=== PATIENT | male | born 1945 | race Caucasian/White ===

== ENCOUNTER 2023-09-12 04:42 | Inpatient (IN) | payer MEDICARE, OTHER, SELFPAY ==
[2023-09-12] VITALS (22 sets, daily range): BP systolic 104–170; BP diastolic 60–83; BMI 28.4; BMI 28.0
[2023-09-12 00:49] LABS: % Basophils 0.8 % (0-2); % Eosinophils 2.1 % (0-6); % Immature Granulocytes 0.3 % (0-0.5); % Monocytes 10.1 % (1.7-9.3); % Neutrophils 56.7 % (42.2-75.2); Absolute Basophils 0.1 10^3/uL (0-0.2); Absolute Eosinophils 0.2 10^3/uL (0-0.7); Absolute Lymphocytes 3.2 10^3/uL (1.2-3.4); Absolute Monocytes 1.1 10^3/uL (0.1-0.6); Hematocrit 42.3 % (39.0-52.0); Hemoglobin 14.8 g/dL (13.0-18.0); Mean Corpuscular Hgb 29.4 pg (27.0-31.0); Mean Corpuscular Volume 84.1 fL (80.0-94.0); Mean Platelet Volume 9.8 fL (7.4-10.4); Nucleated Red Blood Cells % 0 % (-); Platelet Count 188 10^3/uL (130-400); Red Blood Cell Count 5.03 10^6/uL (4.70-6.10); Red Cell Dist. Width 13.8 % (11.5-14.5); White Blood Cell Count 10.5 10^3/uL (4.8-10.8)
[2023-09-12 00:49] LABS: Glucose - Point of Care 147 mg/dl (70-99)
[2023-09-12 01:03] LABS: ALT (SGPT) 25 U/L (0-50); AST (SGOT) 35 U/L (17-59); Albumin 4.8 g/dl (3.5-5.0); Alkaline Phosphatase 135 U/L (38-126); Blood Urea Nitrogen 28 mg/dl (9-20); Calcium 9.9 mg/dl (8.4-10.2); Carbon Dioxide 20 mmol/L (22-30); Chloride 101 mmol/L (98-107); Estimated Creatinine Clearance 59 ml/min; Glucose 161 mg/dl (70-99); Potassium 3.6 mmol/L (3.5-5.1); Sodium 138 mmol/L (135-145); Total Protein 7.5 g/dl (6.3-8.2); eGFR > 60.00
--- NOTE | 2023-09-12 01:04 | ED.GENMED ---
History of Present Illness
<KRYSTINA Cuadra - Last Filed: 09/12/23 01:16>
General
Chief Complaint: Chest Pain
Source: patient
Exam Limitations: none
Time Seen by Provider: 09/12/23 01:01
Nursing documentation reviewed up to this point in time: agreed with
Travel History
Have you had any contact with someone who has COVID-19?: No
Do you have any symptoms of coronavirus? Fever > 100 degrees, chills, cough, shortness of breath, sore throat, loss of taste or smell, muscle aches, or headache?: No
History of Present Illness
History of Present Illness:
patient is a 78 y/o male with PMH of a CABG 1 year ago presenting with CP x 2 hrs. Patient states he was walking up the stairs when the pain started. Patient states the pain is in the center of his chest over the scar and does not radiate. Patient
states he took 4 aspirin at home which did not help and was given nitro en route which have not helped. Patient denies any cardiac issues besides one bout of afib since the CABG. Patient admits to associated SOB and lightheadedness since onset of
chest pain. Patient denies MORA, fever, chills, N/V/D/C, edema. Patient admits to exerting himself more than usual today. Patient denies tobacco or alcohol in the last 48 hrs. Patient denies any recent illness or recent medication changes.
Review of Systems
<KRYSTINA Cuadra - Last Filed: 09/12/23 01:16>
Review of Systems
Constitutional: Reports no symptoms
EENT: Reports no symptoms
Respiratory: Reports trouble breathing
Cardiac: Reports chest pain and diaphoresis
ABD/GI: Reports no symptoms
: Reports no symptoms
Musculoskeletal: Reports no symptoms
Skin: Reports no symptoms
Neurological: Reports dizzy
Endocrine: Reports no symptoms
Hematologic/Lymphatic: Reports no symptoms
Psychiatric: Reports no symptoms
Phy Exam
<KRYSTINA Cuadra - Last Filed: 09/12/23 01:16>
General Physical Exam
General Presentation: well appearing and no apparent distress
General Skin: warm and dry
General Habitus: normal
General Mental: alert
General Hydration: appears well hydrated
ENT Exam
ENT Exam: EOMI, pharynx normal, neck supple and normocephalic
Eye Exam
Eye Exam: PERRL, cornea clear and conjunctiva normal
Cardiovascular Exam
Cardiovascular Exam: regular rate/rhythm, no edema, no murmur and normal peripheral pulses
Pulmonary Exam
Pulmonary Exam: lungs clear, no respiratory distress, no rales, no crackles, no rhonchi, no stridor, no wheezing and no cough
Gastrointestinal Exam
Gastrointestinal Exam: normal bowel sounds, non tender, soft, no organomegaly, no pulsatile mass and non distended
Neurological Exam
Neurological Exam: alert, oriented x3, no motor deficits and speech normal
Musculoskeletal Exam
Musculoskeletal Exam: full ROM and no edema
Skin Exam
Skin Exam: normal color, warm/dry, no rash and no petechia
Psychiatric Exam
Psychiatric Exam: normal mood/affect
<Adeline Badillo DO - Last Filed: 09/12/23 06:24>
Heart Score for Chest Pain Patients
STEMI patient?: No
History: Moderately Suspicious
ECG: Nonspecific Repolarization
Age: >/= 65 years
Risk Factors: >/= 3 Risk Factors or History of CAD
Troponin: >/= 3 x Normal Limit
Heart Score for Chest Pain Patients: 8
Heart Score Risk: 72.7 % MACE over next 6 weeks
Course
<KRYSTINA Cuadra - Last Filed: 09/12/23 01:16>
Orders/Labs/Results
Orders:
Orders
09/12/23 00:32
EKG [Electrocardiogram (*1)] Urgent
Reason for Study: Chest Pain
EKG- Treatment ONCE
09/12/23 00:41
Complete Blood Count/With Diff Urgent
Comprehensive Metabolic Panel Urgent
Troponin I Urgent
09/12/23 01:34
US Abdomen Complete/Upper Urgent
Comment:
Reason For Exam: ACUTE EPIGASTRIC PAIN, ELEVATED TBILI/ALK PHOS
09/12/23 02:56
Troponin I Urgent
09/12/23 03:37
Heparin 4,000 units IV NOW STA
09/12/23 03:[address] Non Medication Order As Directed
Physician Order: PTT 6 hours after initial start of Heparin infusion
Above order entered?: Yes
09/12/23 03:45
PTT Urgent
Comment: Obtain baseline before beginning heparin infusion if not already collected
Heparin 51157 Units/250 ml 25,000 units in 250 ml IV PER PROTOCOL
Weight to be used for heparin protocol in kilograms (kg):: 95.3008880
Protocol:: Cardiac Tx/Acute Coronary
PTT Goal Range to be used:: PTT 73 to 111 seconds
Order type:: Initial
INITIAL Infusion Dose (UNITS/KG/hr) & then follow protocol:: 12 units/kg/hr
Infusion Dose in UNITS/hr & then follow protocol (UNITS/hr):: 1,000
INFUSION RATE in mL/hr & then follow protocol (mL/hr):: 10
PTT less than or equal to 64 seconds:: Increase rate by 200 units/hr (+ 2 mL/hr)
PTT 64.1 to 72.9 seconds:: Increase rate by 100 units/hr (+ 1 mL/hr)
PTT 73 to 111 seconds:: Target Range. No change in rate.
PTT 111.1 to 130.9 seconds:: Decrease rate by 100 units/hr (- 1 mL/hr)
PTT 131 to 199.9 seconds:: HOLD for 1 hr. Then decrease rate by 200 units/hr (- 2 mL/hr)
PTT greater than or equal to 200 seconds:: HOLD for 2 hrs & Notify Provider. Then decrease by 200 units/hr (-
2 mL/hr)
Lab follow-up:: Each change, PTT q6h until 2 consecutive are therapeutic. Then PTT
daily.
09/12/23 04:25
Admit/Transfer Patient As Directed
Co-Sign Provider:
Level of Care: Inpatient admission
Assign to:: IVU
Physician / Group: Drake
Diagnosis: ACS / NSTEMI
Reason for Hospitalization: ACS / NSTEMI
Expected length of stay greater than two midnights?: Yes
ELOS- Estimated Length of Stay in days: 3
I certify the patient meets the requirements for IP care: Yes
09/12/23 04:27
Code Status As Directed
Resuscitation Status: Full Code
09/12/23 04:49
Lactic Acid Urgent
09/12/23 10:25
PTT Urgent
Comment: Heparin gtt
Abnormal Lab Results
09/12/23 09/12/23 09/12/23
00:41 00:48 02:56
Absolute Monos (auto) 1.1 H 10^3/uL
(0.1-0.6)
Monocytes % 10.1 H %
(1.7-9.3)
Carbon Dioxide 20 L mmol/L
(22-30)
BUN 28 H mg/dl
(9-20)
Glucose 161 H mg/dl
(70-99)
Total Bilirubin 2.0 H mg/dl
(0.2-1.3)
Alkaline Phosphatase 135 H U/L
(38-126)
Troponin I 0.443 H* D ng/ml
POC Glucose 147 H mg/dl
(70-99)
09/12/23 00:41
09/12/23 00:41
Vital Signs
Initial and Last Documented VS:
Initial Vital Signs
Temp Pulse Resp BP Pulse Ox
97.7 F 68 18 170/76 100
09/12/23 00:36 09/12/23 00:36 09/12/23 00:36 09/12/23 00:36 09/12/23 00:36
Last Documented Vital Signs
Temp Pulse Resp BP Pulse Ox
97.7 F 77 17 129/71 98
09/12/23 00:36 09/12/23 05:30 09/12/23 05:30 09/12/23 05:00 09/12/23 05:30
<Adeline Badillo, DO - Last Filed: 09/12/23 06:24>
Orders/Labs/Results
Orders:
Orders
09/12/23 00:32
EKG [Electrocardiogram (*1)] Urgent
Reason for Study: Chest Pain
EKG- Treatment ONCE
09/12/23 00:41
Complete Blood Count/With Diff Urgent
Comprehensive Metabolic Panel Urgent
Troponin I Urgent
09/12/23 01:34
US Abdomen Complete/Upper Urgent
Comment:
Reason For Exam: ACUTE EPIGASTRIC PAIN, ELEVATED TBILI/ALK PHOS
09/12/23 02:56
Troponin I Urgent
09/12/23 03:37
Heparin 4,000 units IV NOW STA
09/12/23 03:[address] Non Medication Order As Directed
Physician Order: PTT 6 hours after initial start of Heparin infusion
Above order entered?: Yes
09/12/23 03:45
PTT Urgent
Comment: Obtain baseline before beginning heparin infusion if not already collected
Heparin [id number] Units/250 ml 25,000 units in 250 ml IV PER PROTOCOL
Weight to be used for heparin protocol in kilograms (kg):: 95.4575758
Protocol:: Cardiac Tx/Acute Coronary
PTT Goal Range to be used:: PTT 73 to 111 seconds
Order type:: Initial
INITIAL Infusion Dose (UNITS/KG/hr) & then follow protocol:: 12 units/kg/hr
Infusion Dose in UNITS/hr & then follow protocol (UNITS/hr):: 1,000
INFUSION RATE in mL/hr & then follow protocol (mL/hr):: 10
PTT less than or equal to 64 seconds:: Increase rate by 200 units/hr (+ 2 mL/hr)
PTT 64.1 to 72.9 seconds:: Increase rate by 100 units/hr (+ 1 mL/hr)
PTT 73 to 111 seconds:: Target Range. No change in rate.
PTT 111.1 to 130.9 seconds:: Decrease rate by 100 units/hr (- 1 mL/hr)
PTT 131 to 199.9 seconds:: HOLD for 1 hr. Then decrease rate by 200 units/hr (- 2 mL/hr)
PTT greater than or equal to 200 seconds:: HOLD for 2 hrs & Notify Provider. Then decrease by 200 units/hr (-
2 mL/hr)
Lab follow-up:: Each change, PTT q6h until 2 consecutive are therapeutic. Then PTT
daily.
09/12/23 04:25
Admit/Transfer Patient As Directed
Co-Sign Provider:
Level of Care: Inpatient admission
Assign to:: IVU
Physician / Group: Drake
Diagnosis: ACS / NSTEMI
Reason for Hospitalization: ACS / NSTEMI
Expected length of stay greater than two midnights?: Yes
ELOS- Estimated Length of Stay in days: 3
I certify the patient meets the requirements for IP care: Yes
09/12/23 04:27
Code Status As Directed
Resuscitation Status: Full Code
09/12/23 04:49
Lactic Acid Urgent
09/12/23 10:25
PTT Urgent
Comment: Heparin gtt
Abnormal Lab Results
09/12/23 09/12/23 09/12/23
00:41 00:48 02:56
Absolute Monos (auto) 1.1 H 10^3/uL
(0.1-0.6)
Monocytes % 10.1 H %
(1.7-9.3)
Carbon Dioxide 20 L mmol/L
(22-30)
BUN 28 H mg/dl
(9-20)
Glucose 161 H mg/dl
(70-99)
Total Bilirubin 2.0 H mg/dl
(0.2-1.3)
Alkaline Phosphatase 135 H U/L
(38-126)
Troponin I 0.443 H* D ng/ml
POC Glucose 147 H mg/dl
(70-99)
09/12/23 00:41
09/12/23 00:41
Vital Signs
Initial and Last Documented VS:
Initial Vital Signs
Temp Pulse Resp BP Pulse Ox
97.7 F 68 18 170/76 100
09/12/23 00:36 09/12/23 00:36 09/12/23 00:36 09/12/23 00:36 09/12/23 00:36
Last Documented Vital Signs
Temp Pulse Resp BP Pulse Ox
97.7 F 77 17 129/71 98
09/12/23 00:36 09/12/23 05:30 09/12/23 05:30 09/12/23 05:00 09/12/23 05:30
<KRYSTINA Cuadra - Last Filed: 09/12/23 01:16>
MDM/Problems Addressed
Differential Diagnosis Includes:
HF
SD
angina
MDM/Problems Addressed:
chest pain
<KRYSTINA Cuadra - Last Filed: 09/12/23 01:16>
*Critical Care Note
Total Time (30-74mins, 75-104mins- exclusive of procedures): Not Applicable
<Adeline Badillo DO - Last Filed: 09/12/23 06:24>
*Radiology
Radiology exam reviewed: radiology read reviewed
*Pulse Oximetry
Patient hypoxic: no
*EKG
Interpreted by ED Provider?: Yes
Comparison EKG: no comparison EKG present
Rate: normal
Rhythm: ventricular paced (Atrial sensed, ventricular paced rhythm at a rate of 67)
*Harness Cutter Interpretation
Rate: normal
Interpretation: normal
Rhythm: ventricular paced (Atrial sensed, ventricular paced.)
ED Attending Note
<KRYSTINA Cuadra - Last Filed: 09/12/23 01:16>
-
Portions of this chart may have been created with voice recognition software.� Occasional wrong word or��sound alike� substitutions may have occurred due to the inherent limitations of voice recognition software.
<Adeline Badillo DO - Last Filed: 09/12/23 06:24>
ED Attending Note
Patient seen and examined by attending physician: Yes
I performed the substantive portion of visit, reviewed & personally made and approve the management plan that is documented in note by myself or KANU.: Yes
I performed a history and physical exam of patient and discussed management with resident, I reviewed resident's note and agree with documented findings and plan of care.: Yes
ED Attending Note:
This is an 78-year-old gentleman who resides at home with his . He has history of CAD, cardiomyopathy status post CABG 1 and half years ago, AICD in place, history of PAF, hyperlipidemia, [id number] diabetes. He follows with
cardiology at [facility].
He complains of epigastric, lower substernal chest discomfort that initially began around 10 PM, initially mild in nature but then abruptly worsened while ascending his steps to go to bed, accompanied with shortness of breath, lightheadedness,
diaphoresis. Patient states he never experienced chest discomfort such as this and took 4 chewable aspirin at home and called 911. Prehospital EKG shows 100% ventricular paced rhythm otherwise unremarkable. Due to chest pain EMS bypassed [place] [facility] and brought the patient to [facility]. No previous visits to [facility]. He was given 1 sublingual nitroglycerin spray prehospital with questionable improvement in pain.
Since arrival to the ED however pain has slowly subsided and he is now pain-free.
He does have prior history of cholecystectomy. Remote history of gastritis/GERD that was most apparent while he was working, GERD/gastritis resolved after he retired.
Prior to tonight he has been feeling well, no change in weight, no leg pain or swelling, no recent URI.
No recent change in medications.
He had a pork chop for dinner tonight.
GENERAL: Alert , in no apparent distress. 78-year-old gentleman appears his stated age, bright and alert, pleasant, appears in no acute distress.
EYE: anicteric
NECK: Supple, nontender, no meningismus, no significant adenopathy. No JVD.
ENT: oral mucosa is moist. No rhinorrhea.
CARDIAC: Regular rate and rhythm. no murmur.
LUNGS: Clear breath sounds bilaterally, no acute respiratory distress, no wheezes/rales/rhonchi
ABDOMEN: Rotund, soft, nondistended, mild epigastric tenderness to palpation, no r/g, normoactive BS.
NEUROLOGICAL: Alert and oriented x3, no focal neuro deficits.
SKIN: Warm and dry, normal color, skin intact. No rash.
MUSCULOSKELETAL: No C/C/E. peripheral pulses are full and equal b/l. No palpable tenderness.
PSYCH: Normal and appropriate interaction.
Concern for ACS, gastritis/GERD, pancreatitis, choledocholithiasis, arrhythmia.
EKG again shows atrial sensed, ventricular paced rhythm, 1 PVC. No old EKGs to compare.
I was able to access prior records. Patient had recent fasting labs September 05, 2023 showing T. bili of 1.7, similar minimally elevated bilirubin in the past, normal alkaline phosphatase, normal LFTs. Hemoglobin A1c at 6.3. LDL of 54. Normal CBC.
Current labs concerning for mild upswing in T. bili at 2.0 and mildly elevated alkaline phosphatase which is new compared to previous.
Troponin is normal.
Will plan to repeat troponin and due to uptrend in bilirubin and alkaline phosphatase concern for biliary colic/choledocholithiasis/will check abdominal ultrasound.
AICD interrogated, there has been no arrhythmia events.
09/12/2023 03:45 AM
Ultrasound is unremarkable.
Repeat troponin has trended up to non-STEMI level, 0.443.
Patient remains pain-free and comfortable.
Case discussed with cardiology, Dr. May who request patient be admitted to hospitalist service with consult to cardiology.
IV heparin initiated. Will hold Eliquis and will continue to trend troponin.
Discharge Plan
Departure
Patient Disposition: Admit
Date of Disposition: 09/12/23
Time of Disposition: 03:52
Admit to: IVU
Admit to doctor: Drake
Presentation/result/management discussed w/ accepting MD/DO: Hospitalist
Condition: Serious
Discharge Problem:
Non-ST elevated myocardial infarction (non-STEMI)
Interventions
Interventions:
*Risk Screen - Suicide Last Done: 09/12/23 00:34
*General Assessment Last Done: 09/12/23 00:34
*Neglect/Abuse Screening Last Done: 09/12/23 00:34
ED- Fall Risk Assessment Last Done: 09/12/23 00:36
*ED COVID-19 Vaccine History Last Done: 09/12/23 00:34
ED- Cardiac Assessment Last Done: 09/12/23 00:38
[2023-09-12 01:14] LABS: Troponin I 0.024 ng/ml
[2023-09-12 03:36] LABS: Troponin I 0.443 ng/ml
[2023-09-12] MEDS: HEPARIN 4000 UNITS IV (04:23)
[2023-09-12] MEDS: HEPARIN 25000 UNITS/250 ML IV (04:23)
--- NOTE | 2023-09-12 04:30 | HPS.HSE ---
Family Physician
-
Family Physician: Alexi Reid
Chief Complaint
-
Chest Pain
History of Present Illness
Patient is an 78y M with PMH significant for ASCVD, cardiomyopathy and DM-II who presents to ED complaining of chest pain. Patient states that he was feeling well until about 10 PM this evening when he developed a mild, substernal chest
discomfort. He ambulated up the stairs to bed and his discomfort increased. He states that his pain reached a peak of 5/10 in severity. He had accompanying symptoms of diaphoresis and lightheadedness. He denies any SOB, N/V or palpitations.
Patient denies any prior history of similar symptoms. Patient took 4 ASA tabs at home.
EMS was called and patient was given NTG en route to the ED.
After arrival to the ED, his pain has subsided. He notes that his current pain level is 0/10.
Patient has prior h/o ASCVD. He is s/p CABG x 3 at [place] about 1 1/2 years ago.
He is followed by Dr. Moreland at [facility].
Medical History
Past Medical History
Past Medical History: Reports Other
Additional Past Medical History:
ASCVD
Hypertension
Ischemic Cardiomyopathy (Reported LVEF = 35% per patient)
Chronic HFrEF
DM-II
GERD
Arrhythmia
Past Surgical History: Reports Other
Additional Past Surgical History:
CABG X 3
AICD Placement
Cholecystectomy
Right Thyroidectomy
Social History
Tobacco: Former Smoker (10 pack years total use and quit smoking > 50 years ago.)
Alcohol: Occasional
Drug: None
Personal:
Living: With Family
Family History
Family History: Not pertinent
Allergies / Home Medications
Allergies reflects when Allergies were last updated in [facility].
Home Medications with original date entered in [facility]
Allergy/Medication List:
Allergies
Allergy/AdvReac Type Severity Reaction Status Date / Time
shellfish derived Allergy Anaphylaxis Verified 09/12/23 00:37
Home Medications
amiodarone 200 mg tablet 200 mg PO DAILY 09/12/23
apixaban 5 mg tablet (Eliquis) 5 mg PO BID 09/12/23
aspirin 81 mg capsule 81 mg PO DAILY 09/12/23
atorvastatin 40 mg tablet 40 mg PO HS 09/12/23
carvedilol 3.125 mg tablet 3.125 mg PO BID 09/12/23
empagliflozin 10 mg tablet (Jardiance) 10 mg PO DAILY 09/12/23
furosemide 40 mg tablet 40 mg PO DAILY 09/12/23
magnesium oxide 400 mg PO DAILY 09/12/23
omeprazole 20 mg tablet,delayed release 20 mg PO DAILY 09/12/23
potassium chloride 10 mEq capsule,extended release 10 meq PO DAILY 09/12/23
sacubitril 24 mg-valsartan 26 mg tablet (Entresto) 1 tab PO BID 09/12/23
vitamin E 200 unit tablet 200 unit PO DAILY 09/12/23
Review of Systems
-
History Source: Patient
A 12 point ROS was completed and negative except as noted: Yes
Constitutional: Reports Fatigue; Denies Fever or Chills
EENT: Denies Sore Throat
Respiratory: Denies Cough or Trouble Breathing
Cardiac: Reports Chest Pain and Diaphoresis; Denies Palpitations or Syncope
Abdomen/GI: Denies Abdominal Pain, Nausea, Vomiting or Diarrhea
: Denies Dysuria or Frequency
Neurological: Reports Dizzy; Denies Headache
Psych: Denies Depression or Anxiety
Physical Exam
Vital Signs
Vital Signs
Temp Pulse Resp BP Pulse Ox
97.7 F 76 19 126/60 100
09/12/23 00:36 09/12/23 04:15 09/12/23 04:15 09/12/23 04:00 09/12/23 04:15
Physical Exam
General: Other (78y M in no acute distress.)
HEENT: Moist mucous membranes and PERRLA
Respiratory: Clear; No Wheezes, Rales or Rhonchi
Cardiac: S1/S2, Regular Rhythm and Murmur (III/ HUNG)
GI: Soft, Non Tender, Non Distended and Normal Bowel Sounds
Musculoskeletal: No Clubbing, No Cyanosis and No Edema
Neuro: AO x 3
Laboratory Results
-
09/12/23 00:41
09/12/23 00:41
Laboratory Results
APTT 34.0 Sec (23.4-35.0) 09/12/23 03:45
Total Bilirubin 2.0 mg/dl (0.2-1.3) H 09/12/23 00:41
AST 35 U/L (17-59) 09/12/23 00:41
ALT 25 U/L (0-50) 09/12/23 00:41
Alkaline Phosphatase 135 U/L (38-126) H 09/12/23 00:41
Troponin I 0.443 ng/ml H* D 09/12/23 02:56
Impression/Plan
-
A/P: Patient is an 78y M with PMH significant for ASCVD, CHF and DM-II who presents to ED complaining of chest pain this evening.
ACS / NSTEMI
ASCVD
- Admit for further evaluation and treatment.
- Patient with substernal chest pain and increasing troponin with multiple risk factors / documented coronary disease.
- EKG is V-paced with occasional PVC.
- IV heparin infusion for now.
- Currently pain free - begin NTG should pain recur.
- Continue beta-blockade, statin, ASA, etc.
- Trend troponin to peak.
- Cardiology consultation in the AM for possible ischemic evaluation.
- Follow for any new / recurrent symptoms.
Anion Gap Metabolic Acidosis
- Suspect that anion gap elevation is on the basis of ischemia.
- Lactate level added and is pending.
- Treat suspected coronary ischemia as noted above.
- Follow for improvement in anion gap acidosis.
- Doubt DKA with only marginally elevated glucose.
- Consider further evaluation if no improvement.
Chronic HFrEF
- Patient reports prior LVEF of about 35%.
- No evidence on exam of volume overload / decompensation at present.
- Continue current Lasix dosing.
- Will hold Entresto acutely.
- Follow I/Os, daily weights, etc.
Arrhythmia
- Not clear what arrhythmia - suspect PA-Fib based on med regimen with Amio and Eliquis.
- Monitor on telemetry.
- Currently A-sensing, V-paced rhythm with occasional PVCs.
- Device interrogated in the ED and no events noted since June 2023.
- Hold Eliquis acutely while on IV heparin.
DM-II
- Stable. Patient states that most recent A1C was < 7% - will update.
- Hold Jardiance acutely.
- Follow glucose and cover with SSI as needed.
DVT Prophylaxis: On IV heparin
Code Status: Full
[2023-09-12 05:18] LABS: Lactic Acid 1.2 mmol/L (0.7-2.0)
--- NOTE | 2023-09-12 07:30 | CON.CAR ---
Addendum entered and electronically signed by Henri Almaraz DO 09/12/23 10:22:
I saw and examined the patient.
The Electrician Front's note was reviewed and I agree with the note.
Comment:
Plan:
Chest pain that appears consistent with NSTEMI.
Continue to trend troponins, trop 23 and trending.
Cont IV heparin
Add IV nitro.
Check echo
Get records from [facility] regarding CABG
Hx of BiVICD, EF 35 %, interrogation shows no recent events.
Cont Coreg 3.125 mg BID, Entresto 24/26 mg BID and Jardiance 10 mg daily for CM
Cont Lasix 40 mg PO daily, no evidence of acute HF.
Remains sinus, with hx of paroxysmal Afib s/p CABG. Cont usual dose of amiodarone 200 mg daily.
Discussed with interventional cardiology.
Original Note:
Consultation
Consultation Request
Date/Time Consultation Requested: 09/12/23 at 0630
Date/Time Consultation Performed: 09/12/23 at 0730
Requesting Provider: Dr. Juan
Performing Provider: Dr. Jiang
Reason for Consultation: Chest pain, NSTEMI
Medical History
-
History of Present Illness:
Patient came to [facility] last night with chest pain and cardiology is now consulted for NSTEMI. Patient lives in [place] and follows with [facility] cardiology. He says that he was found to have multivessel CAD during a pre-op cardiac clearance for cataract
surgery 18 months ago. Patient reports CABG with SVG and left radial grafts at [facility]. Patient reports post-op Afib and he is now chronically on amiodarone and Eliquis, last dose of Eliquis was last night. Patient also has a Medtronic ICD, but he says
he does not know what his EF is and if it improved after surgery. Chest pain started during the day yesterday and was on and off but then became sustained around 2200 last night. he also felt diaphoretic and called 911. Paramedics gave him Nitro SL
x1 without improvement in pain. He feels that overall pain lasted about an hour and then improved on it's own and has not recurred. He says that he has an ongoing discomfort in his chest now, but no pain like last night.
PMH:
CAD s/p CABG at [facility] 01/2022
ICM, EF 30-35% by echo 12/27/22
s/p Medtronic TECHNICAL CABLE JOINTER-D 04/2022
Chronic HFrEF
Paroxysmal Afib
Chronic Eliquis OAC, last dose 09/11/23 PM
Chronic amiodarone OAC
DM 2
Past Medical History
Past Medical History: Other (in HPI)
Past Surgical History: Cardiac (ABG at [facility] 2021)
Social History
Tobacco: Former Smoker (smoked 1 ppd age [age])
Alcohol: Occasional (2 beers once a month)
Drug: None
Family History
Family History: CAD
Allergies / Home Medications
Allergy/AdvReac Type Severity Reaction Status Date / Time
shellfish derived Allergy Anaphylaxis Verified 09/12/23 00:37
Medication Instructions Recorded Confirmed Type
amiodarone 200 mg tablet 200 mg PO DAILY 09/12/23 09/12/23 History
apixaban 5 mg tablet (Eliquis) 5 mg PO BID 09/12/23 09/12/23 History
aspirin 81 mg capsule 81 mg PO DAILY 09/12/23 09/12/23 History
atorvastatin 40 mg tablet 40 mg PO HS 09/12/23 09/12/23 History
carvedilol 3.125 mg tablet 3.125 mg PO BID 09/12/23 09/12/23 History
empagliflozin 10 mg tablet 10 mg PO DAILY 09/12/23 09/12/23 History
(Jardiance)
furosemide 40 mg tablet 40 mg PO DAILY 09/12/23 09/12/23 History
magnesium oxide 400 mg PO DAILY 09/12/23 09/12/23 History
omeprazole 20 mg tablet,delayed 20 mg PO DAILY 09/12/23 09/12/23 History
release
potassium chloride 10 mEq 10 meq PO DAILY 09/12/23 09/12/23 History
capsule,extended release
sacubitril 24 mg-valsartan 26 mg 1 tab PO BID 09/12/23 09/12/23 History
tablet (Entresto)
vitamin E 200 unit tablet 200 unit PO DAILY 09/12/23 09/12/23 History
Review of Systems
-
History Source: Patient
All other systems: Negative unless noted
Physical Exam
Vital Signs
Temp Pulse Resp BP Pulse Ox
97.5 F 71 18 145/67 98
09/12/23 06:36 09/12/23 06:35 09/12/23 06:36 09/12/23 06:35 09/12/23 06:36
GEN: NAD. AAOx3
HEENT: EOMI, MMM
LUNGS: CTA B/L, no wheezes or rales
CV: Reg, S1/S2, 1/6 syst LSB
ABD: soft, BS+, NT, ND
EXT: No clubbing, cyanosis, lesions or edema B/L
NEURO: Gross non-focal
SKIN: Warm, dry and pink. No rash
Lab Results
09/12/23 00:41
09/12/23 00:41
Troponin I 0.443 ng/ml H* D 09/12/23 02:56
Impression / Plan
-
PCP: Dr. Alexi Reid
Cardiology: Dr. Luciano Moreland at [facility] [phone]
Impression:
Chest pain
NSTEMI
CAD s/p CABG at [facility] 01/2022
ICM, EF 30-35% by echo 12/27/22
s/p Medtronic TECHNICAL CABLE JOINTER-D 04/2022
Chronic HFrEF
Paroxysmal Afib
Chronic Eliquis OAC, last dose 09/11/23 PM
Chronic amiodarone OAC
DM 2
Echo 12/27/22: EF 30-35%, mild to mod MR, mod with peak/mean 29/17 mmHg and SARAH 1.2 cm sq
Plan:
-Patient came to [facility] last night with chest pain and cardiology is now consulted for NSTEMI. Patient lives in [place] and follows with [facility] cardiology. He says that he was found to have multivessel CAD during a pre-op cardiac clearance for cataract
surgery 18 months ago. Patient reports CABG with SVG and left radial grafts at [facility]. Patient reports post-op Afib and he is now chronically on amiodarone and Eliquis, last dose of Eliquis was last night. Patient also has a Medtronic ICD, but he says
he does not know what his EF is and if it improved after surgery. Chest pain started during the day yesterday and was on and off but then became sustained around 2200 last night. he also felt diaphoretic and called 911. Paramedics gave him Nitro SL
x1 without improvement in pain. He feels that overall pain lasted about an hour and then improved on it's own and has not recurred. He says that he has an ongoing discomfort in his chest now, but no pain like last night.
-Called to request records from primary senior lead software engineer. Records received and reviewed within this note.
-Pain free at present on Heparin gtt.
-Troponin was 0.024 then 0.443 and now 23.0. ECG reviewed by me is paced.
-Talked with patient about cardiac cath based on chest pain. elevated Troponin to 23 and h/o CAD s/p CABG and he is agreeable.
-Last dose of Eliquis was last night.
-Records indicate CABG was in 01/2022, but no CABG report, will call back for additional records.
-Patient with known ICM and EF that did not improve with CABG so patient had Medtronic TECHNICAL CABLE JOINTER-D placed 04/2022. Device interrogated by me today and shows no arrhythmia events, he has 8 years battery longevity.
-CM regimen includes Coreg 3.125 mg BID, Entresto 24/26 mg BID and Jardiance 10 mg daily.
-Patient also takes Lasix 40 mg PO daily chronically and this has been continued. No evidence of acute HF.
-Patient with paroxysmal Afib s/p CABG and he is in SR on ECG and device check. Cont usual dose of amiodarone 200 mg daily.
--- NOTE | 2023-09-12 08:00 | PTCARENOTE ---
Assumed care of patient. Walking rounds completed with previous RN. Pt assessed while he was lying in bed. Pt alert and oriented x4. DAVIS with equal strength throughout. Pt denies chest pain, shortness of breath, and nausea. 100% v-paced on tele with
rates in the 70s. BP stable 150/83. Bilateral radial and DP pulses palpable. No edema noted. +Murmur. POX 99% on RA. Lungs clear throughout. No cough noted. Abdomen soft, round, nontender. +BS. Pt reports last BM 09/10. Pt due to void for this RN. No
skin issues noted. Left AC 20g PIV intact infusing heparin gtt @1000units/hour. Admission questions completed and home medications reviewed. See MAR for medication administration. See worklist for complete nursing assessment. Plan of care reviewed
and patient in agreement.
[2023-09-12] MEDS: COREG 3.125 MG PO ×2 (08:02→19:30)
[2023-09-12 08:03] LABS: Glucose - Point of Care 114 mg/dl (70-99)
[2023-09-12] MEDS: PROTONIX 40 MG PO (08:03)
[2023-09-12] MEDS: LASIX 40 MG PO (08:03)
[2023-09-12] MEDS: KCL 10 MEQ PO (08:03)
[2023-09-12] MEDS: LOW STRENGTH ASPIRIN 81 MG PO (08:03)
[2023-09-12] MEDS: PACERONE 200 MG PO (08:03)
[2023-09-12 10:56] LABS: ACT-LR - POC 332 Seconds (116-155)
--- NOTE | 2023-09-12 11:31 | ITS.CL.CATH ---
Addendum entered and electronically signed by Rohit Fuller MD 09/12/23 17:31:
Correction: The left ventricular pressure is 162/14. There is moderate aortic stenosis with a mean gradient of 23 mmHg across the aortic valve
Original Note:
Concrete Engineering Technician - Catheterization
Cardiac Catheterization
Procedure Report:
CARDIAC CATHETERIZATION REPORT
Date of Procedure: 09/12/2023
Referring: Kurt Washington DO
Indication: Non-STEMI
HEMODYNAMIC DATA
AO: 150/72
LV: 150/14
LEFT VENTRICULOGRAPHY: Inferior akinesis with moderate to severe anterolateral hypokinesis with EF 37%
CORONARY ANGIOGRAPHY
Dominance: Right
Left Main: Normal
LAD: 40% proximal stenosis with occlusion of the distal LAD approximately 35 mm past the takeoff of D2. The LAD distal to the occlusion fills via a patent SAHARA graft. The very large first diagonal branch has 30% ostial stenosis and 95% proximal to
mid stenosis-this has the angiographic appearance of a plaque rupture lesion. The moderate-sized second diagonal branch has 70% ostial stenosis
Circumflex: The circumflex artery has a very long area of disease to 80% severity distal to the origin of a tiny OM1 and a small OM 2. OM 2 is occluded in its distal segment. The circumflex terminates with a bifurcating large OM 3 which originates
past the diseased segment.
RCA: The RCA is occluded at the origin. There is faint qbth-mw-cafum collateral filling of a small segment of the distal RCA territory
Bypass grafts:
1. The left internal mammary graft to the distal LAD is widely patent with excellent distal runoff and no significant LAD disease distal to the touchdown site
2. A vein graft to the RCA is occluded at its origin
3. The patient believed he had three-vessel bypass-there are no other visible bypass grafts and both the first diagonal branch and large OM 3 would have been appropriate targets and clearly have no patent graft to their distributions
Angioplasty: At the conclusion the diagnostic study, the patient underwent multivessel intervention to treat the 95% proximal to mid lesion in the large first diagonal branch and the long segment of disease in the mid circumflex. Heparin was used
for anticoagulation. Plavix 600 mg was administered the procedure conclusion. We opted to treat the diagonal first as this clearly appeared to be the culprit for his non-STEMI. An EBU 3.5 guide catheter was used. A BMW wire was passed into the
large first diagonal branch across the lesion. Predilatation with a 2.25 x 8 trek to 10 brennan was followed by placement of a 2.75 x 12 Xience aditya point JORDANA deployed at 14 brennan then postdilated with a 3.0 NC Euphora to 17 brennan. The final angiographic
result was outstanding. There were no procedural complications. We then turned our attention to the long mid circumflex disease. The BMW wire was redirected into the large OM 3. Segmental angioplasty along the length of the diseased segment with
a 2.5 x 20 trek was followed by placement of a 3.25 x 33 Xience JORDANA deployed at 14 brennan and postdilated with a 3.25 NC Euphora to 17 brennan. The final angiographic result was outstanding. There were no procedural complications.
Closure Device: 6 Martiniquais Angio-Seal RFA
Radiation (mGy): 564
DAP (cm2.Gy): 39.4
Fluoroscopy time: 11.5 minutes
CONCLUSIONS
1: Non-STEMI presentation
2: Moderate to severe left ventricular dysfunction with inferior akinesis and severe anterolateral hypokinesis with EF 37%
3. Severe telida triple-vessel CAD as described with patent GARDINER-distal LAD bypass graft. The vein graft to the RCA is occluded at its origin. Any other vein grafts are presumed occluded
4. Successful stenting of 95% first diagonal branch lesion (culprit) using 2.75 x 12 Xience JORDANA postdilated with 3.0 mm noncompliant balloon with outstanding final result
5. Successful stenting of very long 80% mid circumflex lesion using 3.25 x 33 Xience JORDANA with outstanding final result
6. Recommend triple therapy (Eliquis, aspirin, Plavix) for 1 week then stop aspirin and treat with Eliquis and Plavix for the next 12 months
7. Continue risk factor modification and treatment of left ventricular dysfunction
Copy to: Alexi Reid MD and Luciano Moreland MD
Rohit Fuller MD, FAC, [facility]
--- NOTE | 2023-09-12 11:40 | PTCARENOTE ---
Pt received back from cathodic protection technician. Pt alert and oriented x4. DAVIS with equal strength throughout. Bedrest maintained. Right groin cath site soft, nontender, and dressing CDI. Right DP pulses palpable. VSS. POX 96% on RA.
[2023-09-12 11:58] LABS: Glucose - Point of Care 133 mg/dl (70-99)
--- NOTE | 2023-09-12 12:38 | CM ---
Chart reviewed. Patient is independent of ADLS, lives with his in a 2 [address], 3STE, ambulates with a SPC. Patient is not current with VN. Plan is for the patient to return home. CM to follow
[2023-09-12 12:54] LABS: ACT-LR - POC > 397 Seconds (116-155)
[2023-09-12] MEDS: NSS 1000 IV (12:58)
--- NOTE | 2023-09-12 15:46 | W.PN.HOSP.TC ---
Today's Communication/Plan
-
Eliquis, Plavix, aspirin
Assessment / Plan
Assessment / Plan
Physical Exam
General: Other (78y M in no acute distress.)
HEENT: Moist mucous membranes and PERRLA
Respiratory: Clear; No Wheezes, Rales or Rhonchi
Cardiac: S1/S2, Regular Rhythm and Murmur (III/ HUNG)
GI: Soft, Non Tender, Non Distended and Normal Bowel Sounds
Musculoskeletal: No Clubbing, No Cyanosis and No Edema
Neuro: AO x 3
A/P:� Patient is an 78y M with PMH significant for ASCVD, CHF and DM-II who presents to ED complaining of chest pain this evening.
ACS / NSTEMI now s/p PCI 09/11
ASCVD
�- Patient with substernal chest pain and increasing troponin with multiple risk factors / documented coronary disease.
�- EKG is V-paced with occasional PVC.
�-Cards on board
-LHC: Successful stenting of 95% first diagonal branch lesion and Successful stenting of very long 80% mid circumflex lesion
-�triple therapy (Eliquis, aspirin, Plavix) for 1 week then stop aspirin and treat with Eliquis and Plavix for the next 12 months
-Cont Coreg 3.125 mg BID
Anion Gap Metabolic Acidosis
�- Mild; Suspect that anion gap elevation is on the basis of ischemia. possible starvation ketosis
�- Lactate level 1.2
�- Treat suspected coronary ischemia as noted above.
�- Follow for improvement in anion gap acidosis.
�- Consider further evaluation if no improvement.
Chronic HFrEF
�- Patient reports prior LVEF of about 35%.
�- No evidence on exam of volume overload / decompensation at present.
�- Continue current Lasix dosing.
�- Resume Entresto
�- Follow I/Os, daily weights, etc.
Arrhythmia
�- Not clear what arrhythmia - suspect PA-Fib based on med regimen with Amio and Eliquis.
�- Monitor on telemetry.
�- Currently A-sensing, V-paced rhythm with occasional PVCs.
�- Device interrogated in the ED and no events noted since June 2023.
�- Eliquis
DM-II
�- Stable.� Patient states that most recent A1C was < 7% - will update.
�- Jardiance
�- Follow glucose and cover with SSI as needed.
Transaminitis
� Continue to monitor, right upper quadrant sono unremarkable for dilation of biliary tract
� No abdominal tenderness
� Continue to monitor
DVT Prophylaxis:� On IV heparin - switch to eliquis
Code Status:� Full
Total time spent on today's encounter was 50 minutes which included time spent in counseling the patient/family regarding diagnosis and treatment plan as listed above, goals of care, and symptom management. Case was discussed with nursing staff,
specialists, and care coordinators/case management. All labs and imaging personally reviewed by me. Remainder the time spent in detailed review of previous records, lab data, imaging, and other medical provider documentation.
Anticipated Discharge: Within 24 hours
Subjective/Interval History
-
Date of Service: September 12, 2023
no acute events
Objective Data
-
Labs:
Laboratory Results
09/12/23 09/12/23
03:45 10:25
APTT 34.0 Cancelled
Vital Signs:
Vital Signs
Temp Pulse Resp BP Pulse Ox
97.7 F 71 16 127/67 98
09/12/23 12:14 09/12/23 15:01 09/12/23 12:14 09/12/23 15:01 09/12/23 15:01
I&O
09/11/23 09/12/23 09/13/23
06:59 06:59 06:59
Intake Total 920 / 920
Output Total 1100 / 1100
Balance -180 / -180
Review of Systems
-
History Source: Patient
All other systems: Not reviewed unless documented
Data Reviewed
-
Ultrasound: Image personally visualized and interpreted and Report Reviewed by me
Labs: Labs Reviewed by me
[2023-09-12] MEDS: ENTRESTO 24 MG/26 MG 1 TAB PO (19:29)
[2023-09-12] MEDS: SENOKOT-S 1 TABLET PO (22:00)
[2023-09-12] MEDS: LIPITOR 40 MG PO (22:00)
[2023-09-12 22:05] LABS: Glucose - Point of Care 115 mg/dl (70-99)
--- NOTE | 2023-09-12 23:15 | PTCARENOTE ---
Patient AAOx3, VSS, and sating 97-98% RA. Denies any pain or discomfort. Tele monitor shows Vpaced, HR in the 70-80's at rest. Right groin site C/D/I, and bilateral pedal pulses palpable. Patient aware of POC, call oscar in reach.
[2023-09-13] VITALS (7 sets, daily range): BP systolic 104–118; BP diastolic 57–71; BMI 27.4
[2023-09-13 05:20] LABS: Hematocrit 41.3 % (39.0-52.0); Hemoglobin 14.1 g/dL (13.0-18.0); Mean Corp Hgb Conc. 34.1 g/dL (33.0-37.0); Mean Corpuscular Hgb 29.3 pg (27.0-31.0); Mean Corpuscular Volume 85.7 fL (80.0-94.0); Mean Platelet Volume 10.4 fL (7.4-10.4); Platelet Count 149 10^3/uL (130-400); Red Blood Cell Count 4.82 10^6/uL (4.70-6.10); Red Cell Dist. Width 13.9 % (11.5-14.5); White Blood Cell Count 8.1 10^3/uL (4.8-10.8)
[2023-09-13 05:54] LABS: Blood Urea Nitrogen 29 mg/dl (9-20); Calcium 9.1 mg/dl (8.4-10.2); Carbon Dioxide 24 mmol/L (22-30); Chloride 102 mmol/L (98-107); Estimated Creatinine Clearance 65 ml/min; Glucose 129 mg/dl (70-99); HDL Cholesterol 37 mg/dl; LDL Cholesterol, Calculated 34 mg/dl; Potassium 3.5 mmol/L (3.5-5.1); Sodium 136 mmol/L (135-145); Total Cholesterol 90 mg/dl (50-199); Triglyceride 98 mg/dl (10-149); Very Low Density Lipoprotein 19 mg/dl (0-30); eGFR > 60.00
[2023-09-13 06:59] LABS: Glucose - Point of Care 123 mg/dl (70-99)
[2023-09-13 08:43] LABS: Glycohemoglobin (HgbA1c) 6.3 % (4.0-5.6)
[2023-09-13] MEDS: COREG 3.125 MG PO ×2 (08:45→19:37)
[2023-09-13] MEDS: ELIQUIS 5 MG PO ×2 (08:46→19:37)
[2023-09-13] MEDS: ENTRESTO 24 MG/26 MG 1 TAB PO ×2 (08:46→19:37)
[2023-09-13] MEDS: LASIX 40 MG PO (08:47)
[2023-09-13] MEDS: PACERONE 200 MG PO (08:47)
[2023-09-13] MEDS: JARDIANCE 10 MG PO (08:47)
[2023-09-13] MEDS: KCL 10 MEQ PO (08:47)
[2023-09-13] MEDS: LOW STRENGTH ASPIRIN 81 MG PO (08:47)
[2023-09-13] MEDS: PLAVIX 75 MG PO (08:48)
[2023-09-13] MEDS: PROTONIX 40 MG PO (08:48)
[2023-09-13] MEDS: FLUSH (NSS) 1 FLUSH IV (08:48)
[2023-09-13] MEDS: SENOKOT-S 1 TABLET PO (08:48)
--- NOTE | 2023-09-13 08:54 | W.PN.CARDCBS ---
Addendum entered and electronically signed by Hilton Rosales MD 09/13/23 09:52:
No complaints
allergies: Shellfish
Outpatient medications: Amiodarone 200 mg a day, apixaban 5 mg twice daily, aspirin 81 mg a day, atorvastatin 40 mg a day, carvedilol 3.125 mg twice daily, Jardiance 10 mg a day, furosemide 40 mg a day, magnesium, multivitamins, naproxen,
omeprazole, potassium 10 mill equivalents daily, Entresto twice daily, vitamin E
Current meds: Amiodarone 200 mg a day, atorvastatin 40 mg at bedtime, carvedilol 3.125 twice daily, furosemide 40 mg a day, pantoprazole 40 mg a day, potassium 40 mill equivalents daily, aspirin 81 mg a day, insulin, clopidogrel 75 mg a day,
Entresto twice daily, epic Liposyn 10 mg a day, apixaban 5 mg twice daily, Senokot
PMH/PSH/SH/FH: Reviewed
ROS: Negative except as above
110/66, pulse 76, afebrile, sats 98%
Head neck exam unremarkable, no acute distress, lungs are clear, aortic stenosis murmur, abdomen benign, extremities without clubbing cyanosis or edema, groins intact, neuro nonfocal
ECG sinus rhythm with ventricular pacing
Abdominal ultrasound unremarkable
Hemoglobin 14.1, BUN and creatinine 29 and 1.0, potassium 3.5, troponin 76.7, peak was 131
Impression:
Chest pain
NSTEMI peak Troponin 131 on 09/12/23
CAD
s/p CABG at [facility] 01/2022
s/p 2.75 mm Xience to Diag-1 culprit lesion and 3.25 mm Xience to 80% mid-Circ lesion, patent GARDINER to LAD, occluded SVG to RCA, third reported bypass graft not visualized and presumed occluded by cath 09/12/23ICM, EF 30-35% by echo 12/27/22, stable
at 30-35% by echo at 09/12/23
s/p Medtronic EVENT AV OPERATOR-D 04/2022
Chronic HFrEF
Paroxysmal Afib� � � � �
Chronic Eliquis OAC, last dose 09/11/23 PM
Chronic amiodarone OAC
DM 2
Moderate , peak/mean 21/11 mmHg and SARAH 1.0 cm sq by echo 09/13/23, mean gradient 23 mmHg by cath 09/12/23
Echo 12/27/22: EF 30-35%, mild to mod MR, mod with peak/mean 29/17 mmHg and SARAH 1.2 cm sq
Echo 09/12/23: EF 30-35%, basal inferior and basal inferolateral akinesis, anteroseptal, anterior, mid and distal septal hypokinesis, mild conc LVH, no MR, mild to mod with peak/mean 21/11 mmHg and SARAH 1.0 cm sq
Plan:
Despite his [place], he looks well and seems compensated at this time.
Coronary anatomy reviewed, blood flow to GARDINER, diagonal, OM all good related to GARDINER to LAD and PCI. He has residual occlusion of the RCA and will probably develop more robust [id number] collaterals over time. Plaque rupture of the diagonal may
have been the acute event according to interventional cardiology.
Will check proBNP.
He has moderate aortic stenosis and will eventually require TAVR.
Primary goal at this point will be optimization of lifestyle and risk profile. He will need cardiac rehab.
We can consider the use of spironolactone. Otherwise his medical regimen seems optimized.
.
Continue apixaban, Plavix and aspirin. Stop aspirin in 3 weeks.
.
Given troponin of 130, would observe for 24 hours.
Original Note:
Today's Communication / Plan
-
Dramatic symptomatic improvement following PCI x2
Troponin up to 131, will keep another day
Cont triple therapy with aspirin, Plavix and Eliquis
Cont usual doses of Coreg, Entresto and Jardiance
Consider adding spironolactone
Impression / Plan
-
PCP: Dr. Alexi Reid
Cardiology: Dr. Luciano Moreland at [facility] [phone]
Impression:
Chest pain
NSTEMI peak Troponin 131 on 09/12/23
CAD
s/p CABG at [facility] 01/2022
s/p 2.75 mm Xience to Diag-1 culprit lesion and 3.25 mm Xience to 80% mid-Circ lesion, patent GARDINER to LAD, occluded SVG to RCA, third reported bypass graft not visualized and presumed occluded by cath 09/12/23
ICM, EF 30-35% by echo 12/27/22, stable at 30-35% by echo at 09/12/23
s/p Medtronic EVENT AV OPERATOR-D 04/2022
Chronic HFrEF
Paroxysmal Afib
Chronic Eliquis OAC, last dose 09/11/23 PM
Chronic amiodarone OAC
DM 2
Moderate , peak/mean 21/11 mmHg and SARAH 1.0 cm sq by echo 09/13/23, mean gradient 23 mmHg by cath 09/12/23
Echo 12/27/22: EF 30-35%, mild to mod MR, mod with peak/mean 29/17 mmHg and SARAH 1.2 cm sq
Echo 09/12/23: EF 30-35%, basal inferior and basal inferolateral akinesis, anteroseptal, anterior, mid and distal septal hypokinesis, mild conc LVH, no MR, mild to mod with peak/mean 21/11 mmHg and SARAH 1.0 cm sq
Plan:
-Patient reports symptomatic improvement following Diag-1 and Circ PCI 09/12/23. Troponin peaked at 131. Patient has been pain free since shortly after admission.
-Reviewed cardiac cath report with patient. Reviewed that GARDINER to LAD patent, but that SVG to RCA occluded and third reported graft not visualized. Two phone calls to [facility] office 09/12/23 for records to try and obtain CABG op report, but they kept
sending ICD implant report. Will ask medical records here to reach out to medical records at [facility] for op report.
-Plan is for triple therapy for 1 week and then Plavix and Eliquis for 12 months.
-Patient given paper records of echo and cath report.
-LDL was 34. Cont outpatient dose of atorvastatin 40 mg daily
-Patient is signed up for cardiac rehab
-Patient with known ICM and EF that did not improve with CABG and EF was 30-35% by [facility] echo 12/27/22. Echo repeated at 09/12/23 and EF is stable at 30-35%.
-Medtronic EVENT AV OPERATOR-D placed 04/2022. Device interrogated by nj 09/12/23 and showed no arrhythmia events, he has 8 years battery longevity.
-CM regimen includes Coreg 3.125 mg BID, Entresto 24/26 mg BID and Jardiance 10 mg daily.
-Consider adding spironolactone
-Patient also takes Lasix 40 mg PO daily chronically and this has been continued. No evidence of acute HF.
-Patient with paroxysmal Afib s/p CABG and he is in SR on ECG and device check. Cont usual dose of amiodarone 200 mg daily.
HPI: Patient came to [facility] last night with chest pain and cardiology is now consulted for NSTEMI. Patient lives in [place] and follows with [facility] cardiology. He says that he was found to have multivessel CAD during a pre-op cardiac clearance for
cataract surgery 18 months ago. Patient reports CABG with SVG and left radial grafts at [facility]. Patient reports post-op Afib and he is now chronically on amiodarone and Eliquis, last dose of Eliquis was last night. Patient also has a Medtronic ICD, but
he says he does not know what his EF is and if it improved after surgery. Chest pain started during the day yesterday and was on and off but then became sustained around 2200 last night. he also felt diaphoretic and called 911. Paramedics gave him
Nitro SL x1 without improvement in pain. He feels that overall pain lasted about an hour and then improved on it's own and has not recurred. He says that he has an ongoing discomfort in his chest now, but no pain like last night.
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
Subjective
Date of Service: September 13, 2023
He feels much better following PCI
Objective
Labs:
09/13/23 05:06
09/13/23 05:06
Labs
Hgb 14.1 g/dL (13.0-18.0) 09/13/23 05:06
Hct 41.3 % (39.0-52.0) 09/13/23 05:06
Plt Count 149 10^3/uL (130-400) D 09/13/23 05:06
APTT Cancelled 09/12/23 10:25
Sodium 136 mmol/L (135-145) 09/13/23 05:06
Potassium 3.5 mmol/L (3.5-5.1) 09/13/23 05:06
BUN 29 mg/dl (9-20) H 09/13/23 05:06
Creatinine 1.0 mg/dL (0.7-1.3) 09/13/23 05:06
Glucose 129 mg/dl (70-99) H 09/13/23 05:06
Troponins
09/12/23 09/12/23 09/12/23
00:41 02:56 06:54
Troponin I 0.024 0.443 H* D 23.000 H* D
09/12/23 09/12/23 09/13/23
12:35 18:21 00:11
Troponin I 119.000 H* D 131.000 H* 76.700 H* D
Vital Signs and I&O:
Vital Signs
Temp Pulse Resp BP Pulse Ox
98.3 F 76 16 110/66 98
09/13/23 06:56 09/13/23 07:00 09/13/23 06:56 09/13/23 06:59 09/13/23 06:56
Vital Signs
Temp Pulse Resp BP Pulse Ox
98.3 F 76 16 110/66 98
09/13/23 06:56 09/13/23 07:00 09/13/23 06:56 09/13/23 06:59 09/13/23 06:56
Intake & Output
09/11/23 09/12/23 09/13/23 09/14/23
06:59 06:59 06:59 06:59
Intake Total 1300 / 1300
Output Total 1100 / 1100
Balance 200 / 200
Physical Exam
Physical Exam
GEN: NAD. AAOx3
HEENT: EOMI, MMM
LUNGS: CTA B/L
CV: Reg
ABD: ND
EXT: Right groin dressing removed and underneath is soft without hematoma or ecchymosis. No edema B/L
NEURO: Gross non-focal
SKIN: No rash
--- NOTE | 2023-09-13 09:09 | W.PN.UPDATE ---
Update Note
Progress Note Update
Allergies: Shellfish
Outpatient medications: Amiodarone 200 mg a day, apixaban 5 mg twice daily, aspirin 81 mg a day, atorvastatin 40 mg a day, carvedilol 3.125 mg twice daily, Jardiance 10 mg a day, furosemide 40 mg a day, magnesium, multivitamins, naproxen,
omeprazole, potassium 10 mill equivalents daily, Entresto twice daily, vitamin E
Current meds: Amiodarone 200 mg a day, atorvastatin 40 mg at bedtime, carvedilol 3.125 twice daily, furosemide 40 mg a day, pantoprazole 40 mg a day, potassium 40 mill equivalents daily, aspirin 81 mg a day, insulin, clopidogrel 75 mg a day,
Entresto 24 twice daily, epic Liposyn 10 mg a day, apixaban 5 mg twice daily, Senokot
PMH/PSH/SH/FH: Reviewed
ROS: Negative except as above
110/66, pulse 76, afebrile, sats 98%
Head neck exam unremarkable, no acute distress, lungs are clear, aortic stenosis murmur, abdomen benign, extremities without clubbing cyanosis or edema, groins intact, neuro nonfocal
ECG sinus rhythm with ventricular pacing
Abdominal ultrasound unremarkable
Hemoglobin 14.1, BUN and creatinine 29 and 1.0, potassium 3.5, troponin 76.7, peak was 131
Plan:
Despite his [place], he looks well and seems compensated at this time.
Coronary anatomy reviewed, blood flow to GARDINER, diagonal, OM all good related to GARDINER to LAD and PCI. He has residual occlusion of the RCA and will probably develop more robust [id number] collaterals over time. Plaque rupture of the diagonal may
have been the acute event according to interventional cardiology.
Will check proBNP.
He has moderate aortic stenosis and will eventually require TAVR.
Primary goal at this point will be optimization of lifestyle and risk profile. He will need cardiac rehab.
We can consider the use of spironolactone. Otherwise his medical regimen seems optimized.
.
Continue apixaban, Plavix and aspirin. Stop aspirin in 3 weeks.
.
Given troponin of 130, would observe for 24 hours.
--- NOTE | 2023-09-13 09:18 | PTCARENOTE ---
Received patient this morning resting in bed. Complaining of constipation but stated he was able to have a small bm this morning. Dressing right groin, dry and intact with no signs of hematoma and a strong pedal pulse is present.
[2023-09-13 09:30] LABS: ALT (SGPT) 53 U/L (0-50); AST (SGOT) 302 U/L (17-59); Albumin 3.9 g/dl (3.5-5.0); Alkaline Phosphatase 86 U/L (38-126); Direct Bilirubin 0.2 mg/dl (0.0-0.4); Total Bilirubin 2.8 mg/dl (0.2-1.3); Total Protein 6.2 g/dl (6.3-8.2)
[2023-09-13 10:38] LABS: NT-proBNP 3710 pg/ml
--- NOTE | 2023-09-13 11:14 | CM ---
Chart reviewed. Patient is independent of ADLS, lives with his in a [address] [facility], ambulates with a SPC. Patient currently with no discharge needs. Plan is for the patient to return home. CM to follow
[2023-09-13 11:28] LABS: Glucose - Point of Care 130 mg/dl (70-99)
--- NOTE | 2023-09-13 14:30 | W.PN.HOSP.TC ---
Today's Communication/Plan
-
triple therapy
monitor on tele as v high trop level
Assessment / Plan
Assessment / Plan
Physical Exam
General: Other (78y M in no acute distress.)
HEENT: Moist mucous membranes and PERRLA
Respiratory: Clear; No Wheezes, Rales or Rhonchi
Cardiac: S1/S2, Regular Rhythm and Murmur (III/ HUNG)
GI: Soft, Non Tender, Non Distended and Normal Bowel Sounds
Musculoskeletal: No Clubbing, No Cyanosis and No Edema
Neuro: AO x 3
A/P:� Patient is an 78y M with PMH significant for ASCVD, CHF and DM-II who presents to ED complaining of chest pain this evening.
ACS / NSTEMI now s/p PCI 09/11
ASCVD
�- Patient with substernal chest pain and increasing troponin with multiple risk factors / documented coronary disease.
�- EKG is V-paced with occasional PVC.
�-Cards on board
-LHC: Successful stenting of 95% first diagonal branch lesion and Successful stenting of very long 80% mid circumflex lesion
-�triple therapy (Eliquis, aspirin, Plavix) for 3 weeks then stop aspirin and treat with Eliquis and Plavix for the next 12 months
-Cont Coreg 3.125 mg BID
-cardiac rehab
Anion Gap Metabolic Acidosis
�- Mild; Suspect that anion gap elevation is on the basis of ischemia. possible starvation ketosis
�- Lactate level 1.2
-resolved
�- Treat suspected coronary ischemia as noted above.
�- Follow for improvement in anion gap acidosis.
�- Consider further evaluation if no improvement.
Moderate aortic stenosis
-eventually require TAVR.
Chronic HFrEF
�- Patient reports prior LVEF of about 35%.
�- No evidence on exam of volume overload / decompensation at present.
�- Continue current Lasix dosing.
�- Resume Entresto
�- Follow I/Os, daily weights, etc.
Arrhythmia
�- Not clear what arrhythmia - suspect PA-Fib based on med regimen with Amio and Eliquis.
�- Monitor on telemetry.
�- Currently A-sensing, V-paced rhythm with occasional PVCs.
�- Device interrogated in the ED and no events noted since June 2023.
�- Eliquis
DM-II
�- Stable.� Patient states that most recent A1C was < 7% - will update.
�- Jardiance
�- Follow glucose and cover with SSI as needed.
Transaminitis
� Continue to monitor, right upper quadrant sono unremarkable for dilation of biliary tract
� No abdominal tenderness
� Continue to monitor
DVT Prophylaxis:� eliquis
Code Status:� Full
Total time spent on today's encounter was 52 minutes which included time spent in counseling the patient/family regarding diagnosis and treatment plan as listed above, goals of care, and symptom management. Case was discussed with nursing staff,
specialists, and care coordinators/case management. All labs and imaging personally reviewed by me. Remainder the time spent in detailed review of previous records, lab data, imaging, and other medical provider documentation.
Anticipated Discharge: Within 24 hours
Subjective/Interval History
-
Date of Service: September 13, 2023
s/p PCI yesterday
Objective Data
-
Labs:
Laboratory Results
09/13/23
05:06
WBC 8.1
Hgb 14.1
Hct 41.3
Plt Count 149 D
Sodium 136
Potassium 3.5
Chloride 102
Carbon Dioxide 24
BUN 29 H
Creatinine 1.0
Glucose 129 H
Calcium 9.1
Total Bilirubin 2.8 H
AST 302 H
ALT 53 H
Alkaline Phosphatase 86
Vital Signs:
Vital Signs
Temp Pulse Resp BP Pulse Ox
98.2 F 69 18 116/67 97
09/13/23 11:23 09/13/23 11:24 09/13/23 11:23 09/13/23 11:24 09/13/23 11:24
I&O
09/12/23 09/13/23 09/14/23
06:59 06:59 06:59
Intake Total 1300 / 1300 480 / 480
Output Total 1100 / 1100
Balance 200 / 200 480 / 480
Review of Systems
-
History Source: Patient
All other systems: Reviewed and negative
Data Reviewed
-
Ultrasound: Image personally visualized and interpreted and Report Reviewed by me
Labs: Labs Reviewed by me
--- NOTE | 2023-09-13 15:56 | PTCARENOTE ---
Patient ambulated in the shah with rolling walker down to lounge and back up shah. No chest pain or sob, patient states he feels 'great'. Right femoral cath site DMOINGO, no bleeding or hematoma noted.
[2023-09-13] MEDS: SENOKOT-S PO (19:38)
[2023-09-13] MEDS: LIPITOR 40 MG PO (22:03)
[2023-09-13 22:07] LABS: Glucose - Point of Care 107 mg/dl (70-99)
--- NOTE | 2023-09-13 22:59 | PTCARENOTE ---
Pt rec'd at change of shift in bed with no complaints. 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
[2023-09-14 02:29] VITALS: BP 115/74
[2023-09-14 03:48] LABS: Mean Corp Hgb Conc. 34.1 g/dL (33.0-37.0); Mean Corpuscular Hgb 29.6 pg (27.0-31.0); Mean Corpuscular Volume 86.7 fL (80.0-94.0); Mean Platelet Volume 10.1 fL (7.4-10.4); Platelet Count 141 10^3/uL (130-400); Red Blood Cell Count 4.73 10^6/uL (4.70-6.10); White Blood Cell Count 8.5 10^3/uL (4.8-10.8)
[2023-09-14 03:59] LABS: ALT (SGPT) 42 U/L (0-50); AST (SGOT) 142 U/L (17-59); Albumin 3.8 g/dl (3.5-5.0); Alkaline Phosphatase 85 U/L (38-126); Blood Urea Nitrogen 28 mg/dl (9-20); Calcium 8.9 mg/dl (8.4-10.2); Carbon Dioxide 24 mmol/L (22-30); Chloride 105 mmol/L (98-107); Estimated Creatinine Clearance 65 ml/min; Glucose 116 mg/dl (70-99); Potassium 3.4 mmol/L (3.5-5.1); Sodium 134 mmol/L (135-145); Total Bilirubin 2.9 mg/dl (0.2-1.3); Total Protein 6.2 g/dl (6.3-8.2); eGFR > 60.00
[2023-09-14 07:13] VITALS: BP 101/68
[2023-09-14 07:15] LABS: Glucose - Point of Care 108 mg/dl (70-99)
[2023-09-14 07:35] VITALS: BMI 27.4
[2023-09-14 08:16] VITALS: BP 93/61
[2023-09-14] MEDS: PROTONIX 40 MG PO (08:17)
[2023-09-14] MEDS: LOW STRENGTH ASPIRIN 81 MG PO (08:17)
[2023-09-14] MEDS: SENOKOT-S 1 TABLET PO (08:17)
[2023-09-14] MEDS: KCL 10 MEQ PO (08:17)
[2023-09-14] MEDS: ELIQUIS 5 MG PO (08:17)
[2023-09-14] MEDS: JARDIANCE 10 MG PO (08:18)
[2023-09-14] MEDS: PLAVIX 75 MG PO (08:18)
[2023-09-14 08:20] VITALS: BP 93/61
--- NOTE | 2023-09-14 08:47 | W.PN.CARDCBS ---
Addendum entered and electronically signed by Henri Almaraz DO 09/14/23 10:55:
I saw and examined the patient.
The Correctional Supervising Cook's note was reviewed and I agree with the note.
Comment:
Plan:
Reviewed his cath with him. He had PCI X 2 and GARDINER remains patent.
Reviewed meds and compliance with meds and follow up.
Continue with triple therapy for 1 week and then change to Plavix and Eliquis for 1 year.
Continue outpatient statin. LDL in the goal range at less than 70.
Continue Coreg, Entresto and Jardiance for his cardiomyopathy. Remains euvolemic on chronic Lasix.
Cardiac rehab as outpatient
Likely repeat echo as outpatient. He has a history of ischemic cardiomyopathy with JINRIKISHA DRIVER-D Medtronic device, placed April 2022. There have been no arrhythmia events.
Stable for discharge from cardiac standpoint.
Original Note:
Today's Communication / Plan
-
D/C to home, spent 52 minutes in face to face time with patient and in chart work including e-scribing meds and arranging for outpatient care
Impression / Plan
-
PCP: Dr. Alexi Reid
Cardiology: Dr. Luciano Moreland at [facility] [phone]
Impression:
Chest pain
NSTEMI peak Troponin 131 on 09/12/23
CAD
s/p CABG at [facility] 01/2022
s/p 2.75 mm Xience to Diag-1 culprit lesion and 3.25 mm Xience to 80% mid-Circ lesion, patent GARDINER to LAD, occluded SVG to RCA, third reported bypass graft not visualized and presumed occluded by cath 09/12/23
ICM, EF 30-35% by echo 12/27/22, stable at 30-35% by echo at 09/12/23
s/p Medtronic JINRIKISHA DRIVER-D 04/2022
Chronic HFrEF
Paroxysmal Afib
Chronic Eliquis OAC, last dose 09/11/23 PM
Chronic amiodarone OAC
DM 2
Moderate , peak/mean 21/11 mmHg and SARAH 1.0 cm sq by echo 09/13/23, mean gradient 23 mmHg by cath 09/12/23
Echo 12/27/22: EF 30-35%, mild to mod MR, mod with peak/mean 29/17 mmHg and SARAH 1.2 cm sq
Echo 09/12/23: EF 30-35%, basal inferior and basal inferolateral akinesis, anteroseptal, anterior, mid and distal septal hypokinesis, mild conc LVH, no MR, mild to mod with peak/mean 21/11 mmHg and SARAH 1.0 cm sq
Plan:
-Continues to feel well following Diag-1 and Circ PCI 09/12/23. Troponin peaked at 131.
-Talked with patient, and son at bedside 09/13/23 and reviewed cardiac cath report and that the GARDINER to LAD patent, but that SVG to RCA occluded and third reported graft not visualized. Reviewed plan for ongoing medical management.
-Plan is for triple therapy for 1 week and then Plavix and Eliquis for 12 months.
-Patient given paper records of echo and cath report.
-LDL was 34. Cont outpatient dose of atorvastatin 40 mg daily
-Patient is signed up for cardiac rehab and his will attend the dietary lectures as well, appreciate help of cardiac rehab therapist in coordinating this.
-Patient with known ICM and EF that did not improve with CABG and EF was 30-35% by [facility] echo 12/27/22. Echo repeated at 09/12/23 and EF is stable at 30-35%.
-Medtronic JINRIKISHA DRIVER-D placed 04/2022. Device interrogated by me 09/12/23 and showed no arrhythmia events, he has 8 years battery longevity.
-CM regimen includes Coreg 3.125 mg BID, Entresto 24/26 mg BID and Jardiance 10 mg daily.
-Patient also takes Lasix 40 mg PO daily chronically and this has been continued. No evidence of acute HF.
-Patient with paroxysmal Afib s/p CABG and he is in SR on ECG and device check. Cont usual dose of amiodarone 200 mg daily.
-D/C to home 09/14/23
HPI: Patient came to [facility] last night with chest pain and cardiology is now consulted for NSTEMI. Patient lives in [place] and follows with [facility] cardiology. He says that he was found to have multivessel CAD during a pre-op cardiac clearance for
cataract surgery 18 months ago. Patient reports CABG with SVG and left radial grafts at [facility]. Patient reports post-op Afib and he is now chronically on amiodarone and Eliquis, last dose of Eliquis was last night. Patient also has a Medtronic ICD, but
he says he does not know what his EF is and if it improved after surgery. Chest pain started during the day yesterday and was on and off but then became sustained around 2200 last night. he also felt diaphoretic and called 911. Paramedics gave him
Nitro SL x1 without improvement in pain. He feels that overall pain lasted about an hour and then improved on it's own and has not recurred. He says that he has an ongoing discomfort in his chest now, but no pain like last night.
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
Subjective
Date of Service: September 14, 2023
He feels well and wants to go home
Objective
Labs:
09/14/23 02:55
09/14/23 02:55
Labs
Hgb 14.0 g/dL (13.0-18.0) 09/14/23 02:55
Hct 41.0 % (39.0-52.0) 09/14/23 02:55
Plt Count 141 10^3/uL (130-400) 09/14/23 02:55
APTT Cancelled 09/12/23 10:25
Sodium 134 mmol/L (135-145) L 09/14/23 02:55
Potassium 3.4 mmol/L (3.5-5.1) L 09/14/23 02:55
BUN 28 mg/dl (9-20) H 09/14/23 02:55
Creatinine 1.0 mg/dL (0.7-1.3) 09/14/23 02:55
Glucose 116 mg/dl (70-99) H 09/14/23 02:55
Troponins
09/12/23 09/12/23 09/12/23
00:41 02:56 06:54
Troponin I 0.024 0.443 H* D 23.000 H* D
09/12/23 09/12/23 09/13/23
12:35 18:21 00:11
Troponin I 119.000 H* D 131.000 H* 76.700 H* D
Vital Signs and I&O:
Vital Signs
Temp Pulse Resp BP Pulse Ox
97.6 F 78 16 101/68 98
09/14/23 07:14 09/14/23 07:14 09/14/23 07:14 09/14/23 07:13 09/14/23 07:14
Vital Signs
Temp Pulse Resp BP Pulse Ox
97.6 F 78 16 101/68 98
09/14/23 07:14 09/14/23 07:14 09/14/23 07:14 09/14/23 07:13 09/14/23 07:14
Intake & Output
09/12/23 09/13/23 09/14/23 09/15/23
06:59 06:59 06:59 06:59
Intake Total 1300 / 1300 840 / 840
Output Total 1100 / 1100
Balance 200 / 200 840 / 840
Physical Exam
Physical Exam
GEN: NAD. AAOx3
HEENT: EOMI, MMM
LUNGS: CTA B/L
CV: Reg
ABD: ND
EXT: No edema B/L
NEURO: Gross non-focal
SKIN: No rash
--- NOTE | 2023-09-14 08:56 | PTCARENOTE ---
Addendum entered by Chetna Mitchell RN 09/14/23 12:57:
10:18 BP 108/72, HR74. Candis Hamilton made aware; Dr Pope in room at the time. Both ok'd medications be given. Follow up BP 119/69, HR 69 at 11:04. [address] Dr Pope and Candis Hamilton made aware via tiger text.
Original Note:
Assumed care of patient at beginning of this shift from previous RN. Patient Ox3, able to get OOB to standing scale without difficulty. He is anxious to shower and go home. Cath site DOMINGO, intact with no ecchymosis noted. BP 101/68 at 07:14 and 93/61
at 08:20, HR 74-77; due for Coreg 3.125, Entresto, Lasix 40mg po and amiodarone 200mg po. Both Dr Almaraz and Candis Hamilton made aware; Candis currently seeing patient and instruct further on meds. See worklist for full assessment and vital signs; see
MAR for med administration.
[2023-09-14 10:16] VITALS: BP 108/72
[2023-09-14] MEDS: ENTRESTO 24 MG/26 MG 1 TAB PO (10:18)
[2023-09-14] MEDS: PACERONE 200 MG PO (10:18)
[2023-09-14] MEDS: LASIX 40 MG PO (10:18)
[2023-09-14] MEDS: COREG 3.125 MG PO (10:19)
[2023-09-14] MEDS: KCL ELIXIR 40 MEQ PO (10:21)
[2023-09-14 11:04] VITALS: BP 119/69
--- NOTE | 2023-09-14 11:35 | W.PN.HOSP.TC ---
Addendum entered and electronically signed by Royal Pope MD 09/14/23 15:29:
[id number]
Original Note:
Today's Communication/Plan
-
triple therapy for 1 week, then plavix, eliquis for 1 year thereafter
resume GDMT
f/u cards, pcp outpatient
bmp in 3-5 days
Assessment / Plan
Assessment / Plan
Physical Exam
General: Other (78y M in no acute distress.)
HEENT: Moist mucous membranes and PERRLA
Respiratory: Clear; No Wheezes, Rales or Rhonchi
Cardiac: S1/S2, Regular Rhythm and Murmur (III/ HUNG)
GI: Soft, Non Tender, Non Distended and Normal Bowel Sounds
Musculoskeletal: No Clubbing, No Cyanosis and No Edema
Neuro: AO x 3
A/P:� Patient is an 78y M with PMH significant for ASCVD, CHF and DM-II who presents to ED complaining of chest pain this evening.
ACS / NSTEMI now s/p PCI 09/11
ASCVD
�- Patient with substernal chest pain and increasing troponin with multiple risk factors / documented coronary disease.
�- EKG is V-paced with occasional PVC.
�-Cards on board
-LHC: Successful stenting of 95% first diagonal branch lesion and Successful stenting of very long 80% mid circumflex lesion
-�triple therapy (Eliquis, aspirin, Plavix) for 1 week then stop aspirin and treat with Eliquis and Plavix for the next 12 months
-Cont Coreg 3.125 mg BID, Entresto, Jardiance
-Statin
-cardiac rehab
-repeat ECHO outpatient
Anion Gap Metabolic Acidosis
�- Mild; Suspect that anion gap elevation is on the basis of ischemia. possible starvation ketosis
�- Lactate level 1.2
-resolved
�- Treat suspected coronary ischemia as noted above.
�- Follow for improvement in anion gap acidosis.
�- Consider further evaluation if no improvement.
Moderate aortic stenosis
-eventually require TAVR.
Chronic HFrEF
�- Patient reports prior LVEF of about 35%.
�- No evidence on exam of volume overload / decompensation at present.
�- Continue current Lasix dosing.
�- Resume Entresto
�- Follow I/Os, daily weights, etc.
Arrhythmia
�- Not clear what arrhythmia - suspect PA-Fib based on med regimen with Amio and Eliquis.
�- Monitor on telemetry.
�- Currently A-sensing, V-paced rhythm with occasional PVCs.
�- Device interrogated in the ED and no events noted since June 2023.
�- Eliquis
DM-II
�- Stable.� Patient states that most recent A1C was < 7% - will update.
�- Jardiance
�- Follow glucose and cover with SSI as needed.
Transaminitis
� Continue to monitor, right upper quadrant sono unremarkable for dilation of biliary tract
� No abdominal tenderness
� Continue to monitor
Hyponatremia
-mild
-ctm - f/u bmp in 3-5 days
Hypokalemia
-monitor and replete
-monitor bmp outpatient
DVT Prophylaxis:� eliquis
Code Status:� Full
More than 30 minutes spent in discharge including
Final examination of the patient
Summarizing hospital stay
Instructions for continuing care to all relevant caregivers
Preparation of discharge records, prescriptions, and referral forms
Total time spent (35 in minutes):
Anticipated Discharge: Today
Subjective/Interval History
-
Date of Service: September 14, 2023
doing better, no noted significant abnormalities overnight
Objective Data
-
Labs:
Laboratory Results
09/14/23
02:55
WBC 8.5
Hgb 14.0
Hct 41.0
Plt Count 141
Sodium 134 L
Potassium 3.4 L
Chloride 105
Carbon Dioxide 24
BUN 28 H
Creatinine 1.0
Glucose 116 H
Calcium 8.9
Total Bilirubin 2.9 H
AST 142 H
ALT 42
Alkaline Phosphatase 85
Vital Signs:
Vital Signs
Temp Pulse Resp BP Pulse Ox
97.6 F 74 16 108/72 98
09/14/23 11:11 09/14/23 10:18 09/14/23 07:14 09/14/23 10:18 09/14/23 08:30
I&O
09/13/23 09/14/23 09/15/23
06:59 06:59 06:59
Intake Total 1300 / 1300 840 / 840 240 / 240
Output Total 1100 / 1100
Balance 200 / 200 840 / 840 240 / 240
Review of Systems
-
History Source: Patient
All other systems: Reviewed and negative
Data Reviewed
-
Ultrasound: Image personally visualized and interpreted and Report Reviewed by me
Labs: Labs Reviewed by me
--- NOTE | 2023-09-14 11:45 | W.DS.TRANS ---
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
-
Discharge Instructions:
Sleep Apnea Risk High
Discharge Diagnosis/Procedures Angioplasty and stent x1 to Diagonal artery and
x1 to Left Circumflex artery
Diet 2 Gram Sodium,Diabetic, Carb Controlled
Activity As tolerated
Driving Restrictions No driving for 24 hours
Bathing Restrictions OK to Shower
Blood Work bmp in 5 days with pcp
Other Services Cardiac Rehab
Specialty Instructions Weigh Daily
Instructions:
Stand-Alone Forms: DC Instructions- Cath/EP Lab
Changes to Home Medications: Yes
Discharge Medications:
DC Medications w/original date entered in [facility]
acetaminophen 325 mg tablet (Tylenol) 650 mg PO DAILY PRN neck pain 09/12/23
amiodarone 200 mg tablet 200 mg PO DAILY Arrhythmia 09/12/23
apixaban 5 mg tablet (Eliquis) 5 mg PO BID Blood Clot Prevention/Tx 09/12/23
aspirin 81 mg capsule 81 mg PO DAILY Blood Clot Prevention/Tx 09/12/23
atorvastatin 40 mg tablet 40 mg PO HS High Cholesterol 09/12/23
carvedilol 3.125 mg tablet 3.125 mg PO BID Heart Failure 09/12/23
empagliflozin 10 mg tablet (Jardiance) 10 mg PO DAILY Diabetes 09/12/23
furosemide 40 mg tablet 40 mg PO DAILY Fluid Retention/Swelling 09/12/23
magnesium oxide 400 mg PO DAILY Supplement 09/12/23
multivitamin 1 tab PO DAILY Supplement 09/12/23
potassium chloride 10 mEq capsule,extended release 10 meq PO DAILY Electrolyte Repletion 09/12/23
sacubitril 24 mg-valsartan 26 mg tablet (Entresto) 1 tab PO BID Heart Failure 09/12/23
vitamin E 200 unit tablet 200 unit PO DAILY Supplement 09/12/23
aspirin 81 mg chewable tablet (Children's Aspirin) 81 mg PO DAILY Heart disease/condition #7 tabs 09/14/23
clopidogrel 75 mg tablet 75 mg PO DAILY Heart disease/condition #30 tabs 09/14/23
pantoprazole 40 mg tablet,delayed release 40 mg PO DAILY Gastrointestinal issue #30 tabs 09/14/23
Home Medication Changes
aspirin 81 mg chewable tablet (Children's Aspirin) 81 mg PO DAILY Heart disease/condition #7 tabs 09/14/23
clopidogrel 75 mg tablet 75 mg PO DAILY Heart disease/condition #30 tabs 09/14/23
pantoprazole 40 mg tablet,delayed release 40 mg PO DAILY Gastrointestinal issue #30 tabs 09/14/23
Pending Results: No
[2023-09-14 15:49] LABS: Glucose - Point of Care 100 mg/dl (70-99)
== END 2023-09-14 13:12 | disposition home or self-care (01) | DRG 322 ==
LOC: IVU 04:42
PROVIDERS: Internal Medicine Cardiovascular Disease; Physician Assistant Medical; ADMITTING PHYSICIAN Hospitalist; ATTENDING PHYSICIAN Internal Medicine; CONSULT PHYSICIAN Internal Medicine Cardiovascular Disease; EMERGENCY PHYSICIAN Emergency Medicine; FAMILY PHYSICIAN Internal Medicine
PROC: B2111ZZ Fluoroscopy of Multiple Coronary Arteries using Low Osmolar Contrast (ICD-10-PCS; 2023-09-12)
PROC: 027135Z Dilation of Coronary Artery, Two Arteries with Two Drug-eluting Intraluminal Devices, Percutaneous Approach (ICD-10-PCS; 2023-09-12)
PROC: 4A023N7 Measurement of Cardiac Sampling and Pressure, Left Heart, Percutaneous Approach (ICD-10-PCS; 2023-09-12)
PROC: B2151ZZ Fluoroscopy of Left Heart using Low Osmolar Contrast (ICD-10-PCS; 2023-09-12)
DX: I21.4 Non-ST elevation (NSTEMI) myocardial infarction (principal); E87.20 Acidosis, unspecified; I25.810 Atherosclerosis of coronary artery bypass graft(s) without angina pectoris; I50.22 Chronic systolic (congestive) heart failure; I25.10 Atherosclerotic heart disease of native coronary artery without angina pectoris; I25.5 Ischemic cardiomyopathy; I35.0 Nonrheumatic aortic (valve) stenosis; I48.0 Paroxysmal atrial fibrillation; E11.9 Type 2 diabetes mellitus without complications; I11.0 Hypertensive heart disease with heart failure; Z95.1 Presence of aortocoronary bypass graft; Z79.01 Long term (current) use of anticoagulants; Z79.82 Long term (current) use of aspirin; Z79.84 Long term (current) use of oral hypoglycemic drugs
CPT/HCPCS: 76700; 80053; 80061; 82248; 82962; 83036; 83605; 83880; 84484; 85025; 85027; 85347; 85730; 93005; 93306; 93459; 96374; 99285; C1725; C1760; C1769; C1874; C1887; C1894; C9600; C9601; Q9967

== ENCOUNTER 2023-11-09 15:08 | Outpatient (RCR) | payer MEDICARE, OTHER, SELFPAY ==
[2023-10-24 15:06] LABS: Glucose - Point of Care 163 mg/dl (70-99)
[2023-10-24 15:46] LABS: Glucose - Point of Care 98 mg/dl (70-99)
[2023-10-26 14:47] LABS: Glucose - Point of Care 128 mg/dl (70-99)
[2023-10-26 15:29] LABS: Glucose - Point of Care 107 mg/dl (70-99)
[2023-10-28 14:38] LABS: Glucose - Point of Care 132 mg/dl (70-99)
[2023-10-28 15:23] LABS: Glucose - Point of Care 113 mg/dl (70-99)
[2023-10-31 14:48] LABS: Glucose - Point of Care 147 mg/dl (70-99)
[2023-10-31 15:42] LABS: Glucose - Point of Care 94 mg/dl (70-99)
[2023-11-02 14:51] LABS: Glucose - Point of Care 123 mg/dl (70-99)
[2023-11-02 15:36] LABS: Glucose - Point of Care 128 mg/dl (70-99)
[2023-11-04 14:37] LABS: Glucose - Point of Care 137 mg/dl (70-99)
[2023-11-04 15:38] LABS: Glucose - Point of Care 106 mg/dl (70-99)
[2023-11-09 14:39] LABS: Glucose - Point of Care 137 mg/dl (70-99)
[2023-11-09 15:34] LABS: Glucose - Point of Care 89 mg/dl (70-99)
== END 2023-11-09 23:59 | disposition home or self-care (01) ==
LOC: CRHB 15:08
PROVIDERS: ATTENDING PHYSICIAN Internal Medicine; FAMILY PHYSICIAN Internal Medicine
DX: I21.4 Non-ST elevation (NSTEMI) myocardial infarction (principal); I25.10 Atherosclerotic heart disease of native coronary artery without angina pectoris; Z95.5 Presence of coronary angioplasty implant and graft; Z95.1 Presence of aortocoronary bypass graft
CPT/HCPCS: 82962; G0422; G0423

== ENCOUNTER 2023-12-16 15:26 | Outpatient (RCR) | payer MEDICARE, OTHER, SELFPAY ==
[2023-12-05 13:13] LABS: Glucose - Point of Care 121 mg/dl (70-99)
[2023-12-05 14:09] LABS: Glucose - Point of Care 87 mg/dl (70-99)
== END 2023-12-16 23:59 | disposition home or self-care (01) ==
LOC: CRHB 15:26
PROVIDERS: ATTENDING PHYSICIAN Internal Medicine; FAMILY PHYSICIAN Internal Medicine
DX: I25.10 Atherosclerotic heart disease of native coronary artery without angina pectoris (principal); Z95.5 Presence of coronary angioplasty implant and graft; I25.2 Old myocardial infarction
CPT/HCPCS: 82962; G0422; G0423

== ENCOUNTER 2024-01-18 15:04 | Outpatient (RCR) | payer MEDICARE, OTHER, SELFPAY | END 2024-01-18 23:59 | disposition home or self-care (01) | LOC: CRHB 15:04 | PROVIDERS: ATTENDING PHYSICIAN Internal Medicine; FAMILY PHYSICIAN Internal Medicine | DX: I25.10 Atherosclerotic heart disease of native coronary artery without angina pectoris (principal); Z95.5 Presence of coronary angioplasty implant and graft; I25.2 Old myocardial infarction | CPT/HCPCS: G0422; G0423 ==

== ENCOUNTER 2024-02-03 16:49 | Outpatient (RCR) | payer MEDICARE, OTHER, SELFPAY ==
[2024-01-23 14:54] LABS: Glucose - Point of Care 142 mg/dl (70-99)
[2024-01-23 15:53] LABS: Glucose - Point of Care 112 mg/dl (70-99)
== END 2024-02-03 23:59 | disposition home or self-care (01) ==
LOC: CRHB 16:49
PROVIDERS: ATTENDING PHYSICIAN Internal Medicine; FAMILY PHYSICIAN Internal Medicine
DX: I25.10 Atherosclerotic heart disease of native coronary artery without angina pectoris (principal); Z95.5 Presence of coronary angioplasty implant and graft; I25.2 Old myocardial infarction
CPT/HCPCS: 82962; G0422; G0423